=== PATIENT | male | born 1935 | race Caucasian/White ===

== ENCOUNTER 2017-11-28 09:27 | Inpatient (IN) ==
[2017-11-28] MEDS ORDERED: NORMAL SALINE 1,000 ML IV ONE (09:54)
[2017-11-28] MEDS ORDERED: ONDANSETRON HCL/PF 2 MG/ML VIAL IV ONE (09:54)
--- NOTE | 2017-11-28 09:54 | ERNOTE ---
Medical Problem HPI - Narrative Date of Service: 11/28/17 - General Chief Complaint: Nausea/Vomiting Time Seen by Provider: 11/28/17 09:48 Source: patient, family Exam Limitations: no limitations - Immun/Allergies/Home Medications Immunizations: IMMUNIZATION HX Immunizations Up to Date Yes History of Influenza Vaccine No Hx Pneumococcal Vaccination Yes Allergies/Adverse Reactions: Allergies No Known Allergies Allergy (Verified 08/03/17 13:59) Home Medications: HOME MEDICATIONS Aspirin 81 mg PO DAILY 10/10/15 [Last Taken 08/03/17] Doxazosin Mesylate [Cardura] 4 mg PO DAILY 10/10/15 [Last Taken 08/03/17] Fluticasone Propionate [Flonase] 2 spray NS DAILY 10/10/15 [Last Taken 08/03/17] Lactobacillus Acidophilus [Probiotic Acidophilus] 1 each PO DAILY 04/19/17 [ Last Taken 08/03/17] Multivitamin [Multivitamins] 1 each PO DAILY 04/19/17 [Last Taken 08/03/17] Acetaminophen [Tylenol] 500 mg PO Q4H PRN tablet 08/04/17 [Last Taken Unknown] Levofloxacin [Levaquin] 500 mg PO DAILY #8 tab 08/04/17 [Last Taken Unknown] guaiFENesin [Mucinex] 600 mg PO BID tablet.sa 08/04/17 [Last Taken Unknown] - History of Present History Narrative: Patient presents to the ED for vomiting and diarrhea. He relates that since yesterday morning he has been having vomiting (six episodes) and explosive watery diarrhea. No real abdominal pain but occasionally will cramp with the diarrhea. No blood in the stool. No chest pain or SOB. Has not seen anyone else for this. No other sick contacts. States he has been hot and cold but no known fever. Not on ABx right now. Timing: intermittent Severity: moderate Modifying Factors - (Improves): Present: other - nothing Modifying Factors - (Worsens): Present: other - nothing Review of Systems - Review of Systems Constitutional: Absent: fever EYE: Present: no symptoms reported ENT: Absent: sore throat Respiratory: Absent: shortness of breath Cardiology: Absent: chest pain Gastrointestinal/Abdominal: Present: See HPI, nausea, vomiting, diarrhea Genitourinary: Absent: dysuria Musculoskeletal: Absent: back pain Skin: Absent: rash Neurological: Absent: weakness Medical History (Last Updated 11/28/17 @ 09:47 by Suly Monaco RN) Acute hemorrhoid Enlarged prostate Hernia Hypertension Social History: Preferred Language Danish Do you have any sabianist or No cultural preference? Smoking Status Former smoker Abuse History No History of abuse Psych History Hx of Anxiety Alcohol Use none Physical Exam - Physical Exam General Appearance: Present: alert, no apparent distress, other - sitting on the edge of the bed, non-toxic, no distress. Head Exam: Present: normal inspection, no evidence of injury Eye Exam: Normal inspection: bilateral, PERRL: bilateral Ears, Nose, Throat: Present: normal ENT inspection Neck: Present: normal inspection Respiratory: Present: no respiratory distress, normal breath sounds, no accessory muscle use, lungs clear Cardiovascular/Chest: Present: regular rate, rhythm, normal peripheral pulses Gastrointestinal/Abdominal: Present: normal bowel sounds, nontender, nondistended, soft, other - I am unable to elicit any tenderness in the abdomen. Absent: tenderness Back Exam: Present: normal range of motion. Absent: CVA tenderness (R), CVA tenderness (L) Extremity Exam: Present: normal range of motion Neurological Exam: Present: alert, no motor/sensory deficits Skin Exam: Present: normal color, warm/dry ED Progress - Results and Orders Patient's Lab Results:: I have reviewed the patient's lab results. - Vital Signs Patient's Vital Signs:: I have reviewed the patient's vital signs. Vital Signs: Vital Signs 11/28/17 09:31 Temperature 37.3 C Pulse Rate 94 Respiratory Rate 16 Blood Pressure 182/94 H O2 Sat by Pulse Oximetry 98 - X-Ray X-Ray #1 X-Ray: abdomen Interpretation: Interp. by nm X-ray Comments: I reviewed official radiology report X-Ray #2 X-Ray: chest Interpretation: Interp. by nm X-ray Comments: I reviewed official radiology report - Progress/Reassessment Chief Complaint: Nausea/Vomiting Progress Note-Subjective: 11/28/17 12:51 IV fluids and IV ABx initiated. PSI > 100. D/W Dr Rice who will admit obs. Patient agreeable. Departure Clinical Impression: Pneumonia, Hyponatremia - Departure Disposition: Still a patient Condition: Good
[2017-11-28] MEDS ORDERED: ONDANSETRON HCL/PF 2 MG/ML VIAL ONE (10:08)
[2017-11-28 10:22] LABS: Hematocrit 42.4 % (42.0-52.0); Mean Cell Volume 84.6 fl (78-100); Mean Corpuscular Hemoglobin 29.9 pg (27-31); Mean Corpuscular Hgb Conc 35.4 g/dl (32-36); Mean Platelet Volume 12.3 fl (8-11.3); Neutrophil # 13.3 K/mm3 (1.3-6.0); Neutrophil % 88.9 % (42-75.0); Platelet Count 229 K/mm3 (150-450); Red Blood Count 5.01 M/mm3 (4.7-6.0); Red Cell Distribution Width 12.9 % (11.5-14.0); White Blood Count 14.9 K/mm3 (4.0-10.5)
[2017-11-28 10:30] LABS: Anion Gap 12.8 mmol/L (6.8-13.8); BUN/Creatinine Ratio 15.5 (9.0-21.6); Bilirubin, Total 1.7 mg/dL (0.0-1.1); Calcium * 8.3 mg/dL (7.9-10.9); Carbon Dioxide 25.8 mmol/L (24-32.6); Potassium 4.6 mmol/L (3.4-4.6); Total Protein 7.8 gm/dL (6.2-8.2)
[2017-11-28 11:08] LABS: Urine Bilirubin Negative (NEGATIVE); Urine Ketone 50 mg/dL (NEGATIVE); Urine Nitrite Negative (NEGATIVE); Urine Protein 30 mg/dL (NEGATIVE); Urine Urobilinogen Normal (NORMAL)
[2017-11-28 11:39] LABS: Urine Appearance Clear (CLEAR); Urine Bacteria TRACE; Urine Blood 5 /ul (NEGATIVE); Urine Color Yellow; Urine Mucus TRACE; Urine RBC 0-5 /hpf (0-5); Urine WBC None Seen /hpf (0-5)
[2017-11-28] MEDS ORDERED: LEVOFLOXACIN IN DEXTROSE 5 % 750 MG/150 ML BAG IV ONE (12:22)
[2017-11-28] MEDS ORDERED: NORMAL SALINE 1,000 ML IV PRN (14:07)
[2017-11-28] MEDS ORDERED: ONDANSETRON HCL/PF 2 MG/ML VIAL IV PRN (14:10)
[2017-11-28] MEDS ORDERED: ACETAMINOPHEN 325 MG TABLET PO PRN (14:10)
[2017-11-28] MEDS ORDERED: ONDANSETRON HCL 4 MG TABLET PO PRN (14:10)
[2017-11-28] MEDS ORDERED: ENOXAPARIN SODIUM 40 MG/0.4 ML SYRG SC SCH (14:15)
[2017-11-28] MEDS ORDERED: FAMOTIDINE 20 MG TABLET PO SCH (14:30)
[2017-11-28] MEDS ORDERED: BENZOCAINE/MENTHOL 16 EACH BOX MM PRN (14:50)
[2017-11-28] MEDS ORDERED: HEPARIN SODIUM,PORCINE/D5W 25,000 UNITS/500 ML BAG IV PRN (16:12)
[2017-11-28] MEDS ORDERED: HEPARIN SODIUM,PORCINE 5,000 UNITS/ML VIAL IV ONE (16:12)
[2017-11-28] MEDS ORDERED: ASPIRIN 81 MG TAB.CHEW PO ONE (16:17)
[2017-11-28 16:33] LABS: Hematocrit 40.6 % (42.0-52.0); Hemoglobin 14.3 gm/dL (13.5-18.0); Mean Cell Volume 85.5 fl (78-100); Mean Corpuscular Hemoglobin 30.1 pg (27-31); Mean Corpuscular Hgb Conc 35.2 g/dl (32-36); Mean Platelet Volume 11.6 fl (8-11.3); Neutrophil # 15.4 K/mm3 (1.3-6.0); Neutrophil % 84.7 % (42-75.0); Platelet Count 232 K/mm3 (150-450); Red Blood Count 4.75 M/mm3 (4.7-6.0); White Blood Count 18.2 K/mm3 (4.0-10.5)
[2017-11-28 16:45] LABS: Prothrombin Time (Patient) 10.7 Seconds (9.0-11.0)
[2017-11-28 16:49] LABS: INR 1.07 INR (0.90-1.10)
--- NOTE | 2017-11-28 16:55 | HP ---
Chief Complaint - Chief Complaint Date of Service: 11/28/17 Time of Service: 14:00 Chief Complaint: Abdominal pain, nausea and vomiting History of Present Illness: The patient presented to the ED with complaints of abdominal pain and nausea and vomiting. He states he has had progressively worsening abdominal pain and bloating over the past 2 months and yesterday (11/27/2017) "late afternoon" he because nauseated and starting vomiting and vomited around a total of 6 times. He states shortly after he started vomiting he experienced severe abdominal pain. When asked specifically where, he points from one side to the other across his mid abdomen just inferior to his belly button. When his pain continued to progressively worsen through the AM today, he decided he better go to the ED to be checked out. He denies any blood in his vomit. The patient denies any change in BMs from his baseline which he states is often diarrhea. He notes burning in his throat that has progressively worsened over the past few days. He states he has a chronic cough for the past 2 years and has been diagnosed with pneumonia 1 year ago and 6 months ago as well and during the 6 month ago hospital stay he states he was also was bacteremic. He denies any weight loss over the past year. He has never had a colonoscopy and when asked why, he said "I don't know." He also admits to becoming more fatigued and spacey (easily forgetful). He states his hiccups are driving him crazy and when asked, he states he has been having worsening intermittent hiccups since yesterday after he had the vomiting and severe abdominal pain episode. Abdominal x-ray was obtained in the ED and was non-specific but showed a potential right lower lobe infiltrate so a CXR was obtained in the ED which showed a potential right lower lobe infiltrate so the patient was admitted for pneumonia as well as hyponatremia. Medical History (Last Reviewed 11/28/17 @ 14:25 by Isabelle Mendieta RN) Acute hemorrhoid Enlarged prostate Hernia Hypertension Surgical History: Surgical History (Last Updated 11/28/17 @ 14:25 by Isabelle Mendieta RN) H/O hemorrhoidectomy Family History: Family History (Last Updated 11/28/17 @ 14:26 by Isabelle Mendieta RN) Father Myocardial infarction Social History: Patient Lives/Resources Home Utilized Preferred Language Citizen Of [place] Do you have any anglican or No cultural preference? Smoking Status Former smoker Have you smoked in the past 12 No months Abuse History No History of abuse Psych History Hx of Anxiety Alcohol Use none Review Of Systems (GEN) - Review of Systems Generalized/Overall Review: Present: Weakness, Fatigue. Absent: Chills, Fever, Weight loss EENTM: Present: Throat Pain Respiratory: Present: Cough Cardiac: Absent: Chest Pain, Edema Abdominal: Present: Nausea, Vomiting, Abdominal Pain. Absent: Hematemesis, Melena, Bright blood from rectum Genitourinary: Absent: Burning Misc: All systems neg except as marked Immunizations: IMMUNIZATION HX Immunizations Up to Date Yes History of Influenza Vaccine No Hx Pneumococcal Vaccination Yes Allergies/Adverse Reactions: Allergies Allergy/AdvReac Type Severity Reaction Status Date / Time No Known Allergies Allergy Verified 08/03/17 13:59 Home Medications: HOME MEDICATIONS Aspirin 81 mg PO DAILY 10/10/15 [Last Taken 08/03/17] Doxazosin Mesylate [Cardura] 4 mg PO DAILY 10/10/15 [Last Taken 08/03/17] Fluticasone Propionate [Flonase] 2 spray NS DAILY 10/10/15 [Last Taken 08/03/17] Lactobacillus Acidophilus [Probiotic Acidophilus] 1 each PO DAILY 04/19/17 [ Last Taken 08/03/17] Acetaminophen [Tylenol] 500 mg PO Q4H PRN tablet 08/04/17 [Last Taken Unknown] guaiFENesin [Mucinex] 600 mg PO BID tablet.sa 08/04/17 [Last Taken Unknown] Exam - Exam Vital Signs: Vital Signs - Last Taken Temp 36.7 C 11/28/17 14:11 Pulse 97 11/28/17 14:11 Resp 18 11/28/17 14:11 BP 144/87 11/28/17 14:11 Pulse Ox 94 11/28/17 14:11 Constitutional: Present: Alert, Oriented x3, Cooperative, No distress ENT Exam: Present: hearing grossly normal, moist mucous membranes Eye Exam: bilateral eye: EOMI Back Exam: Present: no CVA tenderness Respiratory: Present: lungs clear, normal breath sounds, no respiratory distress , no accessory muscle use Cardiovascular/Chest: Present: regular rate, rhythm, no edema Abdomen: Present: tender, distended, hypoactive. Absent: guarding, rigidity Extremity: Present: normal inspection Skin Exam: Present: warm/dry Lymphatic: Present: no adenopathy Neurologic: Present: no motor/sensory deficits, alert, normal mood/affect, oriented x 3 Appearance: Present: appropriate appearance, appropriate insight, neat Eye contact: Present: cooperative, good eye contact, normal speech Thoughts: Present: normal thought pattern, no apparent hallucination Diagnostic Studies: Abnormal Lab Results 11/28/17 11/28/17 11/28/17 Range/Units 10:00 10:14 10:14 WBC 14.9 H (4.0-10.5) K/mm3 MPV 12.3 H (8-11.3) fl Immature Gran % (Auto) 1.30 H (0.001-0.429) % Immature Gran # (Auto) 0.19 H (0.000-0.0310) K/mm3 Neutrophils % 88.9 H (42-75.0) % Lymphocytes % 4.8 L (20-51) % Neutrophils # 13.3 H (1.3-6.0) K/mm3 Lymphocytes # 0.72 L (1.5-3.5) k/mm3 Sodium 120 L D (132-142) mmol/L Plasma Sodium 120 L (130-142) mmol/L Chloride 86 L (97-106) mmol/L Random Glucose 113 H (70-110) mg/dL Calcium Adj for Albumin 8.0 L (8.4-10.2) mg/dL Total Bilirubin 1.7 H (0.0-1.1) mg/dL Procalcitonin Less than 0.05 L (0.05-0.50) ng/mL Urine Protein (NEGATIVE) mg/dL Urine Blood (NEGATIVE) /ul Prot Sulfosalicylic Acd (0) mg/dL 11/28/17 11/28/17 Range/Units 10:59 14:15 WBC (4.0-10.5) K/mm3 MPV (8-11.3) fl Immature Gran % (Auto) (0.001-0.429) % Immature Gran # (Auto) (0.000-0.0310) K/mm3 Neutrophils % (42-75.0) % Lymphocytes % (20-51) % Neutrophils # (1.3-6.0) K/mm3 Lymphocytes # (1.5-3.5) k/mm3 Sodium 116 L* (132-142) mmol/L Plasma Sodium (130-142) mmol/L Chloride (97-106) mmol/L Random Glucose (70-110) mg/dL Calcium Adj for Albumin (8.4-10.2) mg/dL Total Bilirubin (0.0-1.1) mg/dL Procalcitonin (0.05-0.50) ng/mL Urine Protein 30 H (NEGATIVE) mg/dL Urine Blood 5 H (NEGATIVE) /ul Prot Sulfosalicylic Acd 2+ H (0) mg/dL Laboratory Results WBC 14.9 K/mm3 (4.0-10.5) H 11/28/17 10:14 RBC 5.01 M/mm3 (4.7-6.0) 11/28/17 10:14 Hgb 15.0 gm/dL (13.5-18.0) 11/28/17 10:14 Hct 42.4 % (42.0-52.0) 11/28/17 10:14 MCV 84.6 fl (78-100) 11/28/17 10:14 MCH 29.9 pg (27-31) 11/28/17 10:14 MCHC 35.4 g/dl (32-36) 11/28/17 10:14 RDW 12.9 % (11.5-14.0) 11/28/17 10:14 Plt Count 229 K/mm3 (150-450) 11/28/17 10:14 MPV 12.3 fl (8-11.3) H 11/28/17 10:14 Immature Gran % (Auto) 1.30 % (0.001-0.429) H 11/28/17 10:14 Immature Gran # (Auto) 0.19 K/mm3 (0.000-0.0310) H 11/28/17 10:14 Neutrophils % 88.9 % (42-75.0) H 11/28/17 10:14 Lymphocytes % 4.8 % (20-51) L 11/28/17 10:14 Monocytes % 4.8 % (0.0-9) 11/28/17 10:14 Eosinophils % 0.0 % (0.0-3.0) 11/28/17 10:14 Basophils % 0.2 % (0.0-1.0) 11/28/17 10:14 Nucleated RBC % 0.0 k/mm3 (0-1) 11/28/17 10:14 Neutrophils # 13.3 K/mm3 (1.3-6.0) H 11/28/17 10:14 Lymphocytes # 0.72 k/mm3 (1.5-3.5) L 11/28/17 10:14 Monocytes # 0.7 k/mm3 (0.0-1.0) 11/28/17 10:14 Eosinophils # 0.0 k/mm3 (0.0-0.7) 11/28/17 10:14 Absolute Basophils 0.0 k/mm3 (0.0-0.1) 11/28/17 10:14 Sodium 116 mmol/L (132-142) L* 11/28/17 14:15 Plasma Sodium 120 mmol/L (130-142) L 11/28/17 10:14 Potassium 4.6 mmol/L (3.4-4.6) 11/28/17 10:14 Chloride 86 mmol/L (97-106) L 11/28/17 10:14 Carbon Dioxide 25.8 mmol/L (24-32.6) 11/28/17 10:14 Anion Gap 12.8 mmol/L (6.8-13.8) 11/28/17 10:14 BUN 11 mg/dL (6-23) 11/28/17 10:14 Creatinine 0.71 mg/dL (0.4-1.4) 11/28/17 10:14 Est GFR (Non-Af Amer) 113 mL/min (60-130) D 11/28/17 10:14 BUN/Creatinine Ratio 15.5 (9.0-21.6) 11/28/17 10:14 Random Glucose 113 mg/dL (70-110) H 11/28/17 10:14 Calcium 8.3 mg/dL (7.9-10.9) 11/28/17 10:14 Calcium Adj for Albumin 8.0 mg/dL (8.4-10.2) L 11/28/17 10:14 Total Bilirubin 1.7 mg/dL (0.0-1.1) H 11/28/17 10:14 AST 24 U/L (0-48) 11/28/17 10:14 ALT 27 U/L (19-67) 11/28/17 10:14 Alkaline Phosphatase 69 U/L (50-170) 11/28/17 10:14 Total Protein 7.8 gm/dL (6.2-8.2) 11/28/17 10:14 Albumin 4.0 gm/dl (3.4-5.0) 11/28/17 10:14 Lipase 117 U/L (73-393) 11/28/17 10:14 Procalcitonin Less than 0.05 ng/mL (0.05-0.50) L 11/28/17 10:00 TSH (Reflex) 1.033 uIU/mL (0.358-3.74) 11/28/17 14:15 Urine Color Yellow 11/28/17 10:59 Urine Appearance Clear (CLEAR) 11/28/17 10:59 Urine pH 7.0 pH (5.0-7.0) 11/28/17 10:59 Ur Specific [place] 1.020 SP.GR. (1.005-1.030) 11/28/17 10:59 Urine Protein 30 mg/dL (NEGATIVE) H 11/28/17 10:59 Urine Glucose (UA) Negative mg/dL (NEGATIVE) 11/28/17 10:59 Urine Ketones 50 mg/dL (NEGATIVE) 11/28/17 10:59 Urine Blood 5 /ul (NEGATIVE) H 11/28/17 10:59 Urine Nitrate Negative (NEGATIVE) 11/28/17 10:59 Urine Bilirubin Negative mg/dl (NEGATIVE) 11/28/17 10:59 Prot Sulfosalicylic Acd 2+ mg/dL (0) H 11/28/17 10:59 Urine Urobilinogen Normal EU/dl (NORMAL) 11/28/17 10:59 Ur Leukocyte Esterase Negative /ul (NEGATIVE) 11/28/17 10:59 Urine RBC 0-5 /hpf (0-5) 11/28/17 10:59 Urine WBC None seen /hpf (0-5) 11/28/17 10:59 Ur Epithelial Cells None seen /hpf (0-5) 11/28/17 10:59 Urine Bacteria Trace (NONE) 11/28/17 10:59 Urine Mucus Trace (NONE) 11/28/17 10:59 Urine Culture Comments No culture indicated 11/28/17 10:59 Assessment/Plan - Narrative Narrative: Clinically, the patient does not look like pneumonia. Also, procalcitonin unremarkable. Leukocytosis likely reactive from vomiting. Afebrile. It appears all of his pulmonary complaints are fairly chronic in nature. Hyponatremia likely acute as the patient and he do not remember ever being told about having a low sodium level in the past. I am concerned for another potential pulmonary process such as a malignancy as the source of his hyponatremia. Patient bolused in the ED but no continuous fluids. Check sodium level now. Start NS @75cc/hr and monitor sodium level every [address] of the chest with contrast ordered for further evaluation given lack of clinical findings supporting pneumonia and hyponatremia. Patient received IV levaquin in the ED so if he does indeed have pneumonia, he will be covered for the next 24 hours. No further antibiotics for now. Sputum culture and blood cultures pending. Further recommendations pending CT results. - Assessment/Plan (1) Hyponatremia Problem: Acute (2) Abdominal pain Problem: Acute (3) Pneumonia Problem: Suspected Qualifiers: Laterality: right Lung location: lower lobe of lung (4) Nausea and vomiting Problem: Acute (5) Hiccups Problem: Acute (6) Leukocytosis Problem: Acute Qualifiers: Leukocytosis type: bandemia Qualified Code(s): D72.825 - Bandemia
[2017-11-28 17:43] VITALS: BP 127/78
[2017-11-28] MEDS ORDERED: SENNOSIDES/DOCUSATE SODIUM 1 TAB TABLET PO SCH (21:00)
[2017-11-28] MEDS ORDERED: FLUTICASONE PROPIONATE 120 SPRAY INHALER NS SCH (21:00)
[2017-11-28] MEDS ORDERED: LACTOBACILLUS ACIDOPHILUS 100 CAP BTL PO SCH (21:00)
[2017-11-29] MEDS ORDERED: ASPIRIN 81 MG TAB.CHEW PO SCH (09:00)
[2017-11-29] MEDS ORDERED: MULTIVITAMINS 1 CAP CAPSULE PO SCH (09:00)
[2017-11-29] MEDS ORDERED: DOXAZOSIN MESYLATE 2 MG TABLET PO SCH (09:00)
--- NOTE | 2017-11-30 06:48 | DS ---
Transfer Discharge Summary - Diagnosis(s)/Problems (1) Hyponatremia Problem: Acute (2) Abdominal pain Problem: Acute (3) Pneumonia Problem: Suspected (4) Nausea and vomiting Problem: Acute (5) Hiccups Problem: Acute (6) Leukocytosis Problem: Acute - Course Description of Stay: ADMISSION DATE: 11/28/2017 TRANSFER DISCHARGE DATE: 11/28/2017 ADMISSION HPI: The patient presented to the ED with complaints of abdominal pain and nausea and vomiting. He states he has had progressively worsening abdominal pain and bloating over the past 2 months and yesterday (11/27/2017) "late afternoon" he because nauseated and starting vomiting and vomited around a total of 6 times. He states shortly after he started vomiting he experienced severe abdominal pain. When asked specifically where, he points from one side to the other across his mid abdomen just inferior to his belly button. When his pain continued to progressively worsen through the AM today, he decided he better go to the ED to be checked out. He denies any blood in his vomit. The patient denies any change in BMs from his baseline which he states is often diarrhea. He notes burning in his throat that has progressively worsened over the past few days. He states he has a chronic cough for the past 2 years and has been diagnosed with pneumonia 1 year ago and 6 months ago as well and during the 6 month ago hospital stay he states he was also was bacteremic. He denies any weight loss over the past year. He has never had a colonoscopy and when asked why, he said "I don't know." He also admits to becoming more fatigued and spacey (easily forgetful). He states his hiccups are driving him crazy and when asked, he states he has been having worsening intermittent hiccups since yesterday after he had the vomiting and severe abdominal pain episode. Abdominal x-ray was obtained in the ED and was non-specific but showed a potential right lower lobe infiltrate so a CXR was obtained in the ED which showed a potential right lower lobe infiltrate so the patient was admitted for pneumonia as well as hyponatremia. HOSPITAL COURSE: The patient was admitted from the emergency department for right lower lobe pneumonia. Upon my evaluation, I did not feel like the patient clinically looked like pneumonia and I was not convinced his laboratory work-up fit with pneumonia either. Procalcitonin unremarkable. Leukocytosis likely reactive from vomiting. Afebrile. It appears all of his pulmonary complaints are fairly chronic in nature. Hyponatremia likely acute as the patient and he do not remember ever being told about having a low sodium level in the past. I am concerned for another potential pulmonary process such as a malignancy as the source of his hyponatremia. Patient bolused in the ED but no continuous fluids. He was started on NS @75cc/hr with plans to monitor sodium level every 4 hours. Patient received IV levaquin in the ED. CT of the chest with contrast was obtained for further evaluation given lack of clinical findings supporting pneumonia and hyponatremia. CT report documented below. The patient has multiple abnormalities seen on his CT scan with the most urgent concern involving the celiac artery. Imaging was discussed in detail with Dr. Olivo, our radiologist. 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 The patients case was discussed with physicians at the [facility]; unfortunately they did not have the CT images at the time of our discussion as they were actively being downloaded so per [facility] they requested that the patient be transferred directly to the emergency department via ambulance. The plan of care was discussed at length with the patient, his and his 2 daughters. Originally we had planned to start the patient on a heparin drip for an acute dissection but after speaking with the physicians at the [facility], they recommended to hold off on heparin drip for now. The patient was transferred to [facility] for further evaluation and management. RADIOLOGY IMAGES: Abdominal x-ray flat with upright on 11/28/2017: Nonobstructive bowel gas pattern. Potential right lower lobe pulmonary infiltrate. Consider pneumonia. Consider chest x-ray to further evaluate. Chest x-ray PA and lateral on 11/28/2017: 1. Right basilar pulmonary infiltrate suggested, with a trace right-sided pleural fluid. Consider pneumonia. Recommend follow-up to document resolution. 2. Stable right lung volume loss. Correlate clinically with prior history of surgery or chronic lung disease. CT chest with contrast on 11/26/2017: 1. Right upper lobe apical pulmonary nodule, more central nodule seen in the right upper lobe, concerning for potential malignancy. 2. Nonspecific right lower lobe basal segmental consolidation superimposed on volume loss and bronchiectasis and fibrotic changes. Could represents pneumonia or chronic atelectatic changes related to fibrosis. Consider chronic aspiration. Atypical malignancy such as bronchoalveolar cell carcinoma or lymphoma should also be considered. 3. Right hilar lymphadenopathy, nonspecific. Consider metastatic disease. 4. Aneurysm of the celiac artery, with potential short segment arterial dissection, either acute or chronic. Consider vascular surgery consultation. 5. Circumferential distal esophageal wall thickening. Consider esophagitis versus mass. Consider further evaluation by endoscopy. Procedures Performed: none - Medications Medications: Active Medications Discontinued Medications Aspirin (Aspirin Chewable) 324 mg PO ONCE ONE Stop: 11/28/17 16:18 Last Admin: 11/28/17 16:28 Dose: 324 mg Benzocaine/Menthol (Cepacol Sore Throat) 1 each MM PRN PRN PRN Reason: Sore Throat Stop: 12/28/17 14:51 Last Admin: 11/28/17 15:07 Dose: 1 each Enoxaparin Sodium (Lovenox) 40 mg SC Q24H MARLENE Stop: 12/28/17 14:16 Last Admin: 11/28/17 15:06 Dose: 40 mg Famotidine (Pepcid) 20 mg PO BID COUNTS INCLUDE 234 BEDS AT THE [facility] Stop: 12/28/17 14:31 Last Admin: 11/28/17 15:07 Dose: 20 mg Heparin Sodium (Porcine) (Heparin Sodium) 8,100 units 80 units/kg (8100 units) IV ONCE ONE Stop: 11/28/17 16:13 Last Admin: 11/28/17 16:23 Dose: 8,100 units Sodium Chloride (Sodium Chloride 0.9%) 1,000 mls @ 500 mls/hr IV .Q2H ONE Stop: 11/28/17 11:53 Last Infusion: 11/28/17 12:11 Dose: Infused Levofloxacin/Dextrose (Levaquin) 750 mg in 150 mls @ 100 mls/hr IV ONCE ONE; Protocol Stop: 11/28/17 13:51 Last Infusion: 11/28/17 17:15 Dose: Infused Sodium Chloride (Sodium Chloride 0.9%) 1,000 mls @ 75 mls/hr IV .[id number] PRN PRN Reason: HYDRATION Stop: 12/28/17 14:08 Last Admin: 11/28/17 15:07 Dose: 75 mls/hr Ondansetron HCl (Zofran) 4 mg IV ONCE ONE Stop: 11/28/17 09:55 Last Admin: 11/28/17 10:19 Dose: 4 mg - Disposition Disposition: Short Term Hospital Inpatient Condition: Serious Discharge Date: 11/28/17 Discharge Time: 17:48
== END 2017-11-28 17:48 | disposition short-term general hospital (02) | DRG 299 ==
LOC: ER 09:27 → MS 09:27
PROVIDERS: ADMIT Internal Medicine; ATTEND Internal Medicine
DX: D72.829 Elevated white blood cell count, unspecified; I10 Essential (primary) hypertension; Z87.891 Personal history of nicotine dependence; R11.2 Nausea with vomiting, unspecified; Z79.82 Long term (current) use of aspirin; R06.6 Hiccough; I77.79 Dissection of other specified artery; E87.1 Hypo-osmolality and hyponatremia; J18.9 Pneumonia, unspecified organism
CPT/HCPCS: 36415; 71020; 71046; 71260; 74019; 74020; 80053; 81001; 83690; 84145; 84295; 84443; 85025; 85610; 87040; 96361; 96365; 96375; 99285; J2405